=== PATIENT | female | born 2000 ===

== ENCOUNTER 2023-08-24 13:23 | Inpatient (IN) | payer BC ==
[2023-08-24] MEDS ORDERED: hydrALAZINE 20 MG/ML VIAL SLOW IVP PRN ×2 (14:15→15:31)
[2023-08-24 15:25] LABS: Fetal Membranes Rupture RUPTURE DETECTED (No Rupture)
[2023-08-24] MEDS ORDERED: Promethazine HCl 25 MG/ML VIAL IM PRN (15:31)
[2023-08-24] MEDS ORDERED: Lidocaine 1% (PF) 30 ML VIAL SC PRN (15:31)
[2023-08-24] MEDS ORDERED: Ondansetron PF 4 MG/2 ML Vial IVP PRN (15:31)
[2023-08-24] MEDS ORDERED: Ibuprofen 800 MG TAB PO PRN (15:32)
[2023-08-24] MEDS ORDERED: Docusate 100 MG CAP PO PRN (15:32)
[2023-08-24] MEDS ORDERED: Misoprostol 200 MCG TAB PR PRN (15:32)
[2023-08-24] MEDS ORDERED: Tranexamic Acid 1,000 MG/10 ML VIAL IVP PRN (15:32)
[2023-08-24] MEDS ORDERED: Acetaminophen 500 MG TAB PO PRN (15:32)
[2023-08-24] MEDS ORDERED: Methylergonovine 0.2 MG/ML VIAL IM PRN (15:32)
[2023-08-24] MEDS ORDERED: Lactated Ringer's 1,000 ML IV SCH (15:45)
[2023-08-24] MEDS ORDERED: Oxytocin 30 units/NS 500 ML 500 ML IV SCH (15:45)
[2023-08-24 16:05] LABS: Hematocrit 40.5 % (34.9-44.5); Hemoglobin 13.8 g/dL (12.0-15.5); Mean Corpuscular HGB CONC 34.1 g/dL (32.0-36.0); Mean Corpuscular Hemoglobin 27.6 pg (27.0-33.0); Mean Platelet Volume 12.1 fl (7.4-10.4); Platelet Count 209 10x3/uL (150-450); White Blood Cell (WBC) Count 13.7 10x3/uL (3.5-10.5)
[2023-08-24 16:39] LABS: HBSAg Index 0.15 S/CO (0-0.99); Hep B Surf Ag - L&D Non-Reactive S/CO (NonReactive)
[2023-08-24 16:41] LABS: Syphilis Antibody Nonreactive (Nonreactive); Syphilis Antibody Index 0.04 S/CO (<1.00 Non-Reactive)
[2023-08-24 16:55] VITALS: BMI 34.1
[2023-08-25] MEDS ORDERED: fentaNYL 50 mcg/mL 1 mL Vial ONE (04:33)
[2023-08-25] MEDS ORDERED: Oxytocin 30 units/NS 500 ML 500 ML ONE (04:33)
[2023-08-25] MEDS ORDERED: valACYclovir 500 MG TAB PO SCH (09:00)
[2023-08-25] MEDS ORDERED: Ondansetron PF 4 MG/2 ML Vial IVP PRN (09:44)
[2023-08-25] MEDS ORDERED: Bisacodyl 10 MG SUPP PR PRN (09:44)
[2023-08-25] MEDS ORDERED: Misoprostol 200 MCG TAB VAG PRN (09:44)
[2023-08-25] MEDS ORDERED: Boostrix 0.5 ML (Tdap) VIAL (>/=7 yrs of age) IM ONE (09:44)
[2023-08-25] MEDS ORDERED: hydrALAZINE 20 MG/ML VIAL SLOW IVP PRN (09:44)
[2023-08-25] MEDS ORDERED: Benzocaine-Menthol 82.5 ML CAN TOP PRN (09:44)
[2023-08-25] MEDS ORDERED: Oxytocin 30 units/NS 500 ML 500 ML IV SCH (09:44)
[2023-08-25] MEDS ORDERED: HYDROcodone/Acetaminophen 5/325 mg Tablet PO PRN ×2 (09:44)
[2023-08-25] MEDS ORDERED: Milk Of Magnesia 30 ML UDCUP PO PRN (09:44)
[2023-08-25] MEDS ORDERED: Lanolin Ointment 7 GM TUBE TOP PRN (09:44)
[2023-08-25] MEDS ORDERED: Prenatal Vitamin 1 TAB PO SCH (10:00)
[2023-08-25] MEDS ORDERED: Docusate 100 MG CAP PO SCH (10:00)
[2023-08-25] MEDS: Ibuprofen 800 MG TAB PO SCH ×2 (15:47→23:46)
[2023-08-25] MEDS: Ferrous Sulfate 325 MG TAB PO SCH (18:27)
[2023-08-25] MEDS: Docusate 100 MG CAP PO SCH (21:31)
[2023-08-26] MEDS: Ferrous Sulfate 325 MG TAB PO SCH ×2 (07:39→17:55)
[2023-08-26] MEDS ORDERED: Prenatal Vitamin 1 TAB PO SCH (09:00)
[2023-08-26] MEDS: Docusate 100 MG CAP PO SCH (09:31)
[2023-08-26] MEDS: Ibuprofen 800 MG TAB PO SCH ×2 (09:31→16:31)
[2023-08-26 21:03] VITALS: BP 121/64; TEMP 98.4
== END 2023-08-26 21:45 | disposition home or self-care (01) | DRG 807 ==
LOC: CSHLD/OP 13:23 → CSHLD 15:45 → CSHPP 08-25 10:10
PROVIDERS: ADMIT Obstetrics & Gynecology; ATTEND Obstetrics & Gynecology
PROC: 10E0XZZ Delivery of Products of Conception, External Approach (ICD-10-PCS; principal; 2023-08-25)
DX: O48.0 Post-term pregnancy (principal); Z37.0 Single live birth; Z3A.40 40 weeks gestation of pregnancy
CPT/HCPCS: 84112; 85027; 86780; 86850; 86900; 86901; 87340; 99285; J2405; J3010